=== PATIENT | female | born 1985 | race Caucasian/White ===

== ENCOUNTER → 2021-01-26 10:25 | Outpatient (BNVA) | payer BC, SELFPAY | PROVIDERS: Visit Provider Family Medicine | DX: E11.9 Type 2 diabetes mellitus without complications (principal); Z76.89 Persons encountering health services in other specified circumstances; N92.6 Irregular menstruation, unspecified; Z12.4 Encounter for screening for malignant neoplasm of cervix; Z98.890 Other specified postprocedural states | CPT/HCPCS: 80053; 83036; 85025 ==

== ENCOUNTER → 2021-02-17 14:23 | Outpatient (BNVA) | payer BC, SELFPAY | PROVIDERS: Visit Provider Obstetrics & Gynecology | DX: Z87.42 Personal history of other diseases of the female genital tract (principal) | CPT/HCPCS: 87624 ==